=== PATIENT | male | born 1985 | race African-American/Black ===

== ENCOUNTER 2021-04-03 02:28 | Emergency (ER) | payer MEDICAID ==
[~2021-04-03] VITALS: Ht 188 cm; Wt 100.0 kg
[2021-04-03] MEDS ORDERED: TETANUS, DIPHTHERIA, PERTUSSIS VAC/PF 0.5ML (>7YR OLD) IM ONE (04:15)
[2021-04-03] MEDS ORDERED: ACETAMINOPHEN 325MG TABLET PO ONE (04:15)
[2021-04-03] MEDS ORDERED: BACITRACIN ZINC OINT UDPKT TOP ONE (04:15)
[2021-04-03] MEDS ORDERED: LIDOCAINE HCL/EPINEPHRINE 1%-EPI 1:100,000 20 ML VIAL INFIL ONE (04:45)
[2021-04-03] MEDS ORDERED: LIDOCAINE HCL 1% 20ML VIAL (Pyxis) INJ INFIL ONE (04:45)
[2021-04-03] MEDS ORDERED: IBUP-2029 MT (05:09)
[2021-04-03 05:33] VITALS: BP 128/90
== END 2021-04-03 05:35 | disposition home or self-care (01) ==
LOC: ER 02:28
DX: S81.012A Laceration without foreign body, left knee, initial encounter (principal); W22.09XA Striking against other stationary object, initial encounter; Y93.01 Activity, walking, marching and hiking; Y92.9 Unspecified place or not applicable
CPT/HCPCS: 12002; 73562; 90471; 90715; 99283; J3490; L1830; Z7610